=== PATIENT | female | born 1990 | race African-American/Black ===

== ENCOUNTER 2020-05-06 08:12 | Day surgery (SDC) | payer OTHER ==
[2020-05-06] MEDS ORDERED: BACITRACIN 50000 UNIT VIAL ONE (08:43)
[2020-05-06] MEDS ORDERED: Ringers Lactate 1,000 ML IV ONE ×3 (08:43→14:50)
[2020-05-06] MEDS ORDERED: NS 0.9% VIAL 50 ML ONE (08:43)
[2020-05-06] MEDS ORDERED: LIDOCAINE 1% W/EPI 1:100,000 MDV 50 ML VIAL ONE (08:43)
[2020-05-06] MEDS ORDERED: CEFAZOLIN SODIUM 1 GM/VIAL ONE (08:43)
[2020-05-06] MEDS ORDERED: GENTAMICIN SULF 80 MG/2ML INJ ONE (08:43)
[2020-05-06] MEDS ORDERED: CEFAZOLIN/SWI 1gm 1 GM/10 ML SYR ONE (08:59)
[2020-05-06] MEDS ORDERED: SCOPOLAMINE HYDROBROMIDE PATCH TD ONE ×2 (08:59→09:10)
[2020-05-06] MEDS ORDERED: propofoL 200 MG/20 ML VIAL IV ONE (11:42)
[2020-05-06] MEDS ORDERED: MIDAZOLAM HCL 2 MG/2 ML INJ ONE (11:42)
[2020-05-06] MEDS ORDERED: ONDANSETRON 4 MG/2 ML VIAL ONE (11:42)
[2020-05-06] MEDS ORDERED: KETOROLAC 30 MG/ML INJ ONE (11:42)
[2020-05-06] MEDS ORDERED: ROCURONIUM 50 MG/5 ML VIAL IV ONE (11:42)
[2020-05-06] MEDS ORDERED: FENTANYL CITR 250 MCG/5 ML ONE (11:42)
[2020-05-06] MEDS ORDERED: VECURONIUM 10 MG/VIAL IV ONE (11:42)
[2020-05-06] MEDS ORDERED: NS 0.9% VIAL 20 ML ONE (11:42)
[2020-05-06] MEDS ORDERED: LIDOCAINE 2% MPF 5 ML VIAL ONE (11:42)
[2020-05-06] MEDS ORDERED: dexAMETHasone 10 MG/ML VIAL ONE (11:42)
[2020-05-06] MEDS ORDERED: MORPHINE 10 MG/ML VIAL ONE (11:43)
[2020-05-06] MEDS ORDERED: GLYCOPYRROLATE 0.2 MG/ML SYR ONE (14:25)
[2020-05-06] MEDS ORDERED: NEOSTIGMINE 1 MG/ML -5 ML ONE (14:26)
[2020-05-06] MEDS ORDERED: Mastisol Adhesive Liq ONE (14:26)
[2020-05-06 15:27] VITALS: O2SAT 97
[2020-05-06 16:09] VITALS: BP 123/72; TEMP 98
--- NOTE | 2020-05-06 16:31 | OP ---
Surgeon: Román Bob MD Preoperative Diagnosis: Breast descent. Postoperative Diagnosis: Breast descent. Procedure Performed: Breast lift. Anesthesia: General. Procedure In Detail: After satisfactory induction of general anesthesia, the chest was prepped with DuraPrep. Dry sterile drapes were applied in the usual manner. A 42 template was used on the right and left areolas. Then, transverse and curvilinear incisions were made. The intervening skin was de -epithelialized with dermabrader and EpiCut. A transverse incision made with electrocautery. Flap w as thinned to 1.3 cm thickness. Flap was elevated towards the sternum, clavicle and anterior axillar y line. Then inferior incision was made. The deep tissue was formed with a cone using 2-0 PDS sutur e. Straps were elevated at 12 o'clock, 1:30 and 3 o'clock position. The straps were then woven in a nd out of the pectoralis muscle back to base of the cone, pectoral muscle back to base of cone, tied themselves with 2 PDS suture. This was done for the 12 o'clock, 3 o'clock strap, was sewn over the s ternum at 3 o'clock position with 2-0 Ethibond. Wounds were temporary stapled shut. Opposite side w as done in an image manner. We then returned to the right. Irrigated the wound with antibiotic solu tion. We marked out curved dog-ears medial laterally and the 10 MILADYS brought out of the axilla, sewn i n place 2-0 silk and wound was closed with 3-0 Vicryl subcutaneous, 3-0 PDS running subcuticular, tie d from lateral to medial and medial to lateral, tied in the vertical meridian breast. The right side was done in an identical manner. The patient was sat up. Site for new nipple-areolar complex was m arked out. Tissue cored out with a 45 mm template. Nipple areolar complexes was sewn in place with 4-0 PDS interrupted followed with 4-0 PDS running subcuticular. Dressed with tinc of benzoin, Steri- Stripsfollowed by Esmarch, fluffs and Tony wrap. The patient tolerated procedure well. Tissue removed from the left was 52 and right 76 g. GH/MODL Voice ID: [id number] Report ID: [id number]
== END 2020-05-06 16:51 | disposition home or self-care (01) ==
LOC: OR 08:12
PROVIDERS: ATTEND Specialist
PROC: 0HQV0ZZ Repair Bilateral Breast, Open Approach (ICD-10-PCS; principal; 2020-05-06 09:00)
DX: N64.81 Ptosis of breast (principal); Z20.828 Contact with and (suspected) exposure to other viral communicable diseases
CPT/HCPCS: 81025; 88305; 19316; J2704; J1580; J2250; J3010; J1100; J2710; J0690 ×2; J7120 ×3; J2405